=== PATIENT | male | born 1945 | race Caucasian/White ===

== ENCOUNTER 2024-02-26 09:02 | Outpatient (CLI) | payer MEDICARE, BC ==
[2024-02-26 09:49] LABS: Hematocrit 37.7 % (38.8-50.0); Mean Corpuscular HGB CONC 34.5 g/dL (32.0-36.0); Mean Corpuscular Hemoglobin 32.6 pg (27.0-33.0); Mean Corpuscular Volume 94.5 fL (81.2-95.1); Mean Platelet Volume 11.2 fL (7.4-10.4); Platelet Count 149 10x3/uL (150-450); RBC Distribution Width 14.3 % (11.5-14.5); Red Blood Cell (RBC) Count 3.99 10x6/uL (4.32-5.72); White Blood Cell (WBC) Count 6.6 10x3/uL (3.5-10.5)
[2024-02-26 11:25] LABS: INR-International Normal Ratio 0.9; Prothrombin Time 10.3 sec (9.5-12.1)
[2024-02-26 14:00] LABS: Anion Gap 15 mmol/L (10-20); BUN (Urea Nitrogen) 22 mg/dL (8.4-25.7); Calc. Creatinine Clearance 0 mL/min (70-130); Calcium 9.4 mg/dL (7.8-10.44); Carbon Dioxide 19 mmol/L (23-31); Chloride 107 mmol/L (98-107); Estimated GFR 51; Glucose 91 mg/dL (83-110); Magnesium 2.4 mg/dL (1.6-2.6); Potassium 4.7 mmol/L (3.5-5.1); Sodium 136 mmol/L (136-145)
== END 2024-02-26 09:03 | disposition home or self-care (01) ==
LOC: LABBT 09:02
PROVIDERS: ATTEND Internal Medicine
DX: Z01.812 Encounter for preprocedural laboratory examination (principal); I50.9 Heart failure, unspecified; I25.5 Ischemic cardiomyopathy; I49.3 Ventricular premature depolarization
CPT/HCPCS: 80048; 83735; 85027; 85610

== ENCOUNTER 2024-03-13 06:31 | Day surgery (SDC) | payer MEDICARE, BC ==
[2024-03-12 10:22] VITALS: BMI 23.1
[2024-03-13] MEDS ORDERED: Heparin 10,000 UNITS/ 10 ML VIAL ONE (08:43)
[2024-03-13] MEDS ORDERED: Ondansetron PF 4 MG/2 ML Vial ONE (09:02)
[2024-03-13] MEDS ORDERED: fentaNYL PF 100 MCG/2 ML SYRINGE ONE ×2 (09:02→11:41)
[2024-03-13] MEDS ORDERED: Lidocaine 1% PF 5 ML VIAL ONE (09:02)
[2024-03-13] MEDS ORDERED: Dexamethasone 20 MG/5 ML VIAL ONE (09:03)
[2024-03-13] MEDS ORDERED: PROPOFOL 0 ML ONE (09:03)
[2024-03-13] MEDS ORDERED: Protamine Sulfate 50 MG/5 ML VIAL ONE (10:04)
[2024-03-13] MEDS ORDERED: Isoproterenol 0.2 MG/1 ML AMP ONE (10:04)
[2024-03-13] MEDS ORDERED: CAFFEINE SLOW IVP SCH (12:15)
[2024-03-13] MEDS ORDERED: [UNRECOGNIZED DRUG - OTHER] SLOW IVP SCH (12:15)
== END 2024-03-13 13:50 | disposition home or self-care (01) ==
LOC: SDC 06:31
PROVIDERS: ATTEND Internal Medicine
DX: I49.3 Ventricular premature depolarization (principal); I25.5 Ischemic cardiomyopathy; I50.22 Chronic systolic (congestive) heart failure
CPT/HCPCS: 93623; J0706; J1100; J1644; J1742; J2405; J2704; J2720